=== PATIENT | female | born 1930 | race Caucasian/White ===

== ENCOUNTER 2019-03-15 09:25 | Inpatient (IN) | payer MEDICARE, OTHER ==
[2019-03-15] VITALS (7 sets, daily range): BP systolic 110–159; BP diastolic 60–92
[~2019-03-15] VITALS: Ht 162.6 cm; Wt 73.7 kg
[~2019-03-15 09:25] MED LIST: CARB100T3 PO; CHOL100013 PO; CIPR500T PO; DICL75TA PO; DOCU-109 PO; FLUO20CA16 PO; GABA300C18 PO; HYDR-2679 PO; HYDR-3164 PO; IV RINGERS,LACTATED 1000ML 1,000 ML IV SCH; LIDOCAINE 1% PF 2 ML VIAL. ID PRN; LIDOCAINE 2% PF 5 ML VIAL. ONE; METH4TAB2 PO; ONDANSETRON PF 4 MG/2 ML VIAL. IV PRN; PROCHLORPERAZINE 10 MG/2 ML VIAL. IV PRN; PROPOFOL 20 ML IV ONE; SIMV10TA3 PO; SIMV40TA3 PO; TEMA30CA PO; fentaNYL PF VIAL 100 MCG/2 ML VIAL IV PRN; fentaNYL PF VIAL 100 MCG/2 ML VIAL ONE
--- NOTE | 2019-03-15 10:38 | RAD ---
CHEST PA LATERAL History: PRE OP FOR RIGHT HIP ARTHROSCOPY X TODAY Comparison: None. Findings: Atherosclerotic and tortuous thoracic aorta. Cardiac size is normal. Pulmonary vasculature is normal. The lungs are clear. No pleural effusion or pneumothorax is seen. There is no acute bone abnormality. 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 IMPRESSION: No acute cardiopulmonary process. Electronically signed by: Michael Pratt MD (03/15/2019 10:35 AM) [id number]
[2019-03-15 10:59] LABS: CALCIUM 8.6 mg/dL (8.5-10.1); CREATININE 1.2 mg/dL (0.6-1.0); GFR 42.4; POTASSIUM 4.7 mmol/L (3.5-5.1)
[2019-03-15 11:05] LABS: ALBUMIN 3.5 g/dL (3.4-5.0); ALBUMIN/GLOBULIN RATIO 1.1 (1.0-1.7); TOTAL BILIRUBIN 0.5 mg/dL (0.2-1.0); TOTAL PROTEIN 6.6 g/dL (6.4-8.2)
[2019-03-15 11:07] LABS: BASO % 1 % (0-3); EOS # 0.1 x10^3/uL (0.0-0.7); EOS % 2 % (0-3); HEMATOCRIT 34.3 % (36.0-47.0); HEMOGLOBIN 11.3 g/dL (12.0-15.5); LYMPH # 1.2 x10^3/uL (1.0-4.8); LYMPH % 27 % (24-48); MEAN CORPUSCULAR HEMOGLOBIN 30 pg (25-35); MEAN CORPUSCULAR HGB CONC 33 g/dL (31-37); MEAN CORPUSCULAR VOLUME 91 fL (79-100); MONO # 0.3 x10^3/uL (0.0-1.1); MONO % 7 % (0-9); NEUT # 2.9 x10^3uL (1.8-7.7); NEUT % 63 % (31-73); PLATELET COUNT 199 x10^3/uL (140-400); RED BLOOD COUNT 3.76 x10^6/uL (3.50-5.40); RED CELL DISTRIBUTION WIDTH 13.7 % (11.5-14.5); WHITE BLOOD COUNT 4.6 x10^3/uL (4.0-11.0)
[2019-03-15] MEDS ORDERED: ROPIVacaine 0.2% PF 10 ML VIAL. ONE (12:01)
--- NOTE | 2019-03-15 12:09 | EKG ---
[facility] [address] [place] [address] Test Date: 2019-03-15 Test Time: 10:31:44 Pat Name: CHERIE GALICIA Department: Room: Gender: F [employer]: [facility] : 1930 Requested By: MARGRET FORD Order Number: [id number] Reading MD: Devyn Tony Measurements Intervals [place] Rate: 70 P: 42 OR: 264 QRS: 20 QRSD: 72 T: 18 QT: 414 QTc: 450 Interpretive Statements SINUS RHYTHM PROLONGED OR INTERVAL ABNORMAL ECG Compared to ECG 05/11/2016 16:57:01 Left-axis deviation no longer present Electronically Signed On 03-21-2019 11:31:38 CDT by Devyn Tony
[2019-03-15] MEDS ORDERED: DEXAMETHASONE SOD PHOS 4 MG/ML VIAL ONE (12:21)
[2019-03-15] MEDS ORDERED: SEVOFLURANE 31 TO 60 MINUTES. IH ONE (13:05)
[2019-03-15] MEDS ORDERED: ONDANSETRON PF 4 MG/2 ML VIAL. ONE (13:14)
[2019-03-15] MEDS ORDERED: IV NORMAL SALINE 1000ML BAG 1,000 ML IV SCH (14:36)
[2019-03-15] MEDS ORDERED: fentaNYL PF VIAL 100 MCG/2 ML VIAL ONE (14:37)
[2019-03-15] MEDS: fentaNYL PF VIAL 100 MCG/2 ML VIAL IV PRN ×2 (14:44→14:56)
[2019-03-15] MEDS ORDERED: MORPHINE SULFATE 2 MG/ML VIAL. IV PRN (14:45)
[2019-03-15] MEDS ORDERED: fentaNYL PF VIAL 100 MCG/2 ML VIAL IV PRN (14:45)
[2019-03-15] MEDS ORDERED: 0.9 % SODIUM CHLORIDE 10 ML DISP.SYRIN. IV PRN (14:45)
[2019-03-15] MEDS ORDERED: CALCIUM CARBONATE 500 MG TAB.CHEW PO PRN (14:45)
[2019-03-15] MEDS ORDERED: DEXTROSE 50% 25 GM / 50ML DISP.SYRIN. IV PRN (14:45)
[2019-03-15] MEDS ORDERED: PROCHLORPERAZINE 5 MG TABLET. PO PRN (14:45)
[2019-03-15] MEDS ORDERED: diphenhydrAMINE 50 MG/ML VIAL IV PRN (14:45)
[2019-03-15] MEDS ORDERED: ZOLPIDEM 5 MG TABLET. PO PRN (14:45)
--- NOTE | 2019-03-15 15:35 | NUR ---
Admitted from PACU per bed, alert/oriented, drsg clean, dry & intact to right hip, states discomfort level 2-3/10, bilateral SCD in place, IVF infusing into dorsal left hand, oriented to surroundings, call light within reach, family member at bedside
--- NOTE | 2019-03-15 16:27 | PDOC4 ---
Operative Note Operative Note Date of surgery: 03/15/2019 Preoperative diagnosis: Refractory trochanteric bursitis right hip Postoperative diagnosis: Same Operative procedure: Right hip arthroscopy release of iliotibial band and debridement of trochanteric bursa Surgeon: Yulissa Anesthesia: Gen. Estimated blood loss: 5 mL Complications: None Operative indications: Patient is an 89-year-old female that is undergone multiple previous injections with recurrence of right hip trochanteric bursitis the continues to be very limiting for her. She was interested in more definitive treatment given the lessening effectiveness and duration of her shots in the trochanteric bursa and lack of response to physical therapy and iliotibial band stretching. I gone over with her the possibility of the surgery the rationale for the recovery process possibility of continued pain infection nerve or blood vessel damage medical or other anesthetic consultations among others she wishes to proceed with surgical evaluation and treatment. Operative text: Patient was identified procedure verified patient placed in the supine position on the operating table.. After adequate amounts of general anesthesia were administered she was placed decubitus position right side up with the beanbag for stability all bony prominences were well-padded. The right hip was prepped and draped in standard sterile fashion. After timeout was performed patient procedure identified and verified arthroscopic portals were made proximal and distal to the most prominent portion of the greater trochanter over the lateral hip. Iliotibial band was identified in the center aspect of it was released under arthroscopic visualization from the muscle insertion just superior to the greater trochanter to distal where the vastus lateralis muscle was readily visible underneath the fascia. The iliotibial band opened widely debridement of the underlying trochanteric bursa was carried out with arthroscopic shaver. Bleeding points were controlled by electrocautery free movement of the proximal femur was noted throughout as were evidence of previous steroid from injections in the bursal area. The hip was drained of arthroscopic fluid portals closed with nylon suture sterile dressings were applied patient was returned recovery room stable condition having tolerated procedure well MARGRET FORD MD Mar 15, 2019 16:27
[2019-03-15] MEDS: ONDANSETRON ODT 4 MG TAB.RAPDIS. PO SCH (18:00)
[2019-03-15] MEDS: ONDANSETRON PF 4 MG/2 ML VIAL. IV SCH (18:00)
--- NOTE | 2019-03-15 18:00 | NUR ---
Zofran po & iv held no nausea or vomiting noted
[2019-03-15] MEDS ORDERED: HYDROcodone/APAP 5/325MG 1 TAB TABLET PO PRN ×2 (19:30→19:45)
[2019-03-15] MEDS ORDERED: SIMVASTATIN 40 MG TABLET. PO SCH (21:00)
[2019-03-15] MEDS ORDERED: TEMAZEPAM 15 MG CAPSULE PO SCH (21:00)
[2019-03-15] MEDS: DICLOFENAC SODIUM 25 MG TABLET.DR PO SCH (21:46)
[2019-03-15] MEDS: GABAPENTIN 300 MG CAPSULE. PO SCH (21:46)
[2019-03-15] MEDS: DOCUSATE SODIUM 100 MG CAPSULE. PO SCH (21:46)
[2019-03-16] MEDS: ONDANSETRON PF 4 MG/2 ML VIAL. IV SCH ×3 (00:15→11:08)
[2019-03-16 02:59] VITALS: BP 125/66
[2019-03-16] MEDS: ONDANSETRON ODT 4 MG TAB.RAPDIS. PO SCH ×2 (05:51)
[2019-03-16] MEDS ORDERED: MAGNESIUM HYDROXIDE 2,400 MG/30 ML ORAL.SUSP. PO PRN (06:00)
[2019-03-16 06:21] VITALS: BP 118/68
[2019-03-16] MEDS ORDERED: FLUoxetine HCL 20 MG CAPSULE PO SCH (08:00)
[2019-03-16] MEDS: DOCUSATE SODIUM 100 MG CAPSULE. PO SCH (08:40)
[2019-03-16] MEDS: DICLOFENAC SODIUM 25 MG TABLET.DR PO SCH (08:41)
[2019-03-16] MEDS: GABAPENTIN 300 MG CAPSULE. PO SCH (08:41)
[2019-03-16] MEDS: ACETAMINOPHEN 500 MG TABLET PO SCH (08:43)
[2019-03-16 10:57] VITALS: BP 120/65
--- NOTE | 2019-03-16 11:15 | NUR ---
Ashwini is doing well. she is anticipating going home this afternoon. continues to deny pain--0-1. she has no hip restrictions. will being going to pt . daughter at bedside.
[2019-03-16] MEDS ORDERED: ONDANSETRON PF 4 MG/2 ML VIAL. IV PRN (12:00)
[2019-03-16] MEDS ORDERED: ONDANSETRON ODT 4 MG TAB.RAPDIS. PO PRN (12:00)
--- NOTE | 2019-03-16 12:30 | NUR ---
reviewed orally discharge instructions with Ashwini and her daughter Elaine. to use walker until released by Dr. Duenas. apply ice at least 4x's a day. remove Ori hose at least 8 hrs a day if she uses them. remove dressing after shower; apply bandages or [place]. she already has an appt with Dr. Duenas in 2 weeks. script for lortab given. both verbalized understanding of these instructions
[2019-03-16] MEDS ORDERED: BISACODYL 10 MG SUPP.RECT. PR PRN (16:00)
--- NOTE | 2019-03-22 05:46 | DS ---
DATE OF DISCHARGE: 03/16/2019 PRINCIPAL DIAGNOSIS: Recalcitrant trochanteric bursitis, right hip. PROCEDURE: Right hip arthroscopy with iliotibial band release and debridement of trochanteric bursa. DISCHARGE DISPOSITION: Home with self-care. She is weightbearing as tolerated. ACTIVITY: Advancing slowly as tolerated. DISCHARGE MEDICATIONS: Include [place] 5/325 one to two p.o. q. 4-6 hours p.r.n. pain. Resume preoperative medications including gabapentin 300 mg t.i.d., Prozac 20 mg daily, Colace 100 mg p.o. b.i.d., diclofenac 75 mg p.o. b.i.d., simvastatin 40 mg p.o. daily and temazepam 30 mg p.o. daily for sleep. FOLLOWUP: Dr. Duenas in approximately 10 days. BRIEF DESCRIPTION OF HOSPITAL COURSE: The patient underwent uncomplicated hip arthroscopy with release as above. She is noted to have some primarily low back, more than hip pain postoperatively and some postoperative sedation with some decreased oxygen but with some postoperative hypoxia that resolved with additional observation. She ambulated well and noted that her hip felt much better even on postoperative day #1. She was getting around transferring independently or safely with minimal assistance and was discharged home in stable condition. MARGRET DUENAS MD DR: ALONDRA/shawanda JOB#: [id number] / [id number]
== END 2019-03-16 13:00 | disposition home or self-care (01) | DRG 502 ==
LOC: SURG 09:25 → 4 SOUTHEST 14:52
PROVIDERS: ADMIT Orthopaedic Surgery; ATTEND Orthopaedic Surgery
PROC: 0LN Tendons, Release (ICD-10-PCS; 2019-03-15)
PROC: 0MBL4ZZ Excision of Right Hip Bursa and Ligament, Percutaneous Endoscopic Approach (ICD-10-PCS; principal; 2019-03-15 10:45)
DX: M70.61 Trochanteric bursitis, right hip (principal); I10 Essential (primary) hypertension; Z90.49 Acquired absence of other specified parts of digestive tract; Z88.1 Allergy status to other antibiotic agents; Z88.5 Allergy status to narcotic agent; Z88.2 Allergy status to sulfonamides
CPT/HCPCS: 36415; 71046; 80053; 85025; 93005; J0690; J1100; J2001; J2270; J2405; J2704; J2795; J3010; 97116; 97150; 97530